=== PATIENT | female | born 1990 ===

== ENCOUNTER 2018-02-03 20:38 | Emergency (ER) | payer SELFPAY ==
[2018-02-03 20:44] VITALS: RESP 19; TEMP 98.6; O2SAT 100
[2018-02-03] MEDS ORDERED: Sodium Chloride 0.9% 1,000 ML IV STA ×2 (20:58→21:13)
--- NOTE | 2018-02-03 21:15 | ED PDOC ---
HPI: Abdomen Time Seen by Provider: 02/03/18 20:55 Chief Complaint (Nursing): Abdominal Pain History Per: Patient Onset/Duration Of Symptoms: Days (1) Current Symptoms Are (Timing): Still Present Severity: Moderate Location Of Pain/Discomfort: Epigastric Quality Of Discomfort: Sharp Associated Symptoms: Nausea, Vomiting, Diarrhea. denies: Fever Exacerbating Factors: None Alleviating Factors: None Additional Complaint(s): Epigastric abd pain assoc with vomiting and diarrhea x 2 days. Denies fever or blood in stools. Anthony weak and dizzy earlier. Past Medical History Vital Signs: Last Vital Signs Temp 98.6 F 02/03/18 20:40 Pulse 106 H 02/03/18 20:40 Resp 19 02/03/18 20:40 BP 127/78 02/03/18 20:40 Pulse Ox 100 02/03/18 20:40 - Medical History PMH: No Chronic Diseases - Family History Family History: States: Unknown Family Hx - Home Medications Home Medications: Ambulatory Orders Medication Instructions Recorded Famotidine [Pepcid] 20 mg PO Q12 #20 tab 02/03/18 Ondansetron [Zofran] 4 mg PO Q8H #10 tab 02/03/18 - Allergies Allergies/Adverse Reactions: Allergies Allergy/AdvReac Type Severity Reaction Status Date / Time No Known Allergies Allergy Verified 02/03/18 20:42 Review of Systems ROS Statement: Except As Marked, All Systems Reviewed And Found Negative Gastrointestinal: Positive for: Vomiting, Abdominal Pain, Diarrhea Neurological: Positive for: Dizziness Physical Exam - Reviewed Nursing Documentation Reviewed: Yes Vital Signs Reviewed: Yes - Physical Exam Appears: Positive for: Non-toxic, No Acute Distress Head Exam: Positive for: ATRAUMATIC, NORMAL INSPECTION, NORMOCEPHALIC Skin: Positive for: Normal Color, Warm, DRY Eye Exam: Positive for: EOMI, Normal appearance, PERRL ENT: Positive for: Other (Mucous membranes dry) Neck: Positive for: Normal, Painless ROM Cardiovascular/Chest: Positive for: Regular Rate, Rhythm Respiratory: Positive for: CNT, Normal Breath Sounds Gastrointestinal/Abdominal: Positive for: Soft, Tenderness (Epigastric) Back: Positive for: Normal Inspection Extremity: Positive for: Normal ROM Neurologic/Psych: Positive for: Alert, Oriented - Laboratory Results Result Diagrams: 02/03/18 21:41 02/03/18 21:41 - ECG O2 Sat by Pulse Oximetry: 100 - Progress Re-evaluation Time: 23:44 Condition: Improved (Tolerated PO no vomiting, no abd pain) Disposition - Clinical Impression Clinical Impression: Gastritis - Patient ED Disposition Is Patient to be Admitted: No Counseled Patient/Family Regarding: Studies Performed, Diagnosis, Need For Followup, Rx Given - Disposition Referrals: [facility] [Outside] Disposition: Routine/Home Disposition Time: 23:45 Condition: FAIR Prescriptions: Famotidine [Pepcid] 20 mg PO Q12 #20 tab Ondansetron [Zofran] 4 mg PO Q8H #10 tab Instructions: Gastritis Forms: [facility] (Kyrgyz)
[2018-02-03 21:52] LABS: BASO % 0.1 % (0.0-2.0); EOS % 0.3 % (0.0-4.0); HEMOGLOBIN 13.8 g/dL (12.0-16.0); LYMPH # 0.4 K/uL (1.0-4.3); MEAN CELL VOLUME 84.8 fl (81.0-99.0); MEAN CORPUSCULAR HEMOGLOBIN 27.4 pg (27.0-31.0); MEAN CORPUSCULAR HGB CONC 32.3 g/dL (33.0-37.0); MONO # 1.1 K/uL (0.0-0.8); MONO % 7.4 % (0.0-10.0); NEUT # 12.9 K/uL (1.8-7.0); NEUT % 89.2 % (50.0-75.0); PLATELET COUNT 282 K/uL (130-400); RBC 5.04 Mil/uL (3.80-5.20); RED CELL DISTRIBUTION WIDTH 14.2 % (11.5-14.5); WHITE BLOOD COUNT 14.5 K/uL (4.8-10.8)
[2018-02-03 22:02] LABS: ALB/GLOB RATIO 1.1 (1.0-2.1); ALBUMIN 4.6 g/dL (3.5-5.0); ALT/SGPT 25 U/L (9-52); AST/SGOT 24 U/L (14-36); BLOOD UREA NITROGEN 15 mg/dl (7-17); CALCIUM 9.2 mg/dL (8.4-10.2); GFR NON-AFRICAN AMERICAN > 60
[2018-02-03 22:03] LABS: LIPASE 50 U/L (23-300)
[2018-02-03 22:41] LABS: LYMPHOCYTE 7 % (20-50); MONOCYTE 5 % (0-10); MYELOCYTE 1 % (0-0); NEUTROPHIL 87 % (42-75); PLATELET ESTIMATE NORMAL (NORMAL); TOTAL CELLS COUNTED 100
[2018-02-04 00:08] VITALS: BP 105/60; PULSE 70
== END 2018-02-04 00:07 | disposition home or self-care (01) ==
LOC: H.ER 20:38
DX: K29.70 Gastritis, unspecified, without bleeding (principal)
CPT/HCPCS: 80053; 81025; 83690; 85025; 96361; 96374; 96375; 99284; J2405; J7030

== ENCOUNTER 2018-07-07 10:47 | Emergency (ER) | payer OTHER ==
[2018-07-07 10:48] VITALS: BMI 38.2
[2018-07-07 10:49] VITALS: RESP 18; O2SAT 99
[2018-07-07] MEDS ORDERED: Sodium Chloride 0.9% 1,000 ML IV STA (10:53)
--- NOTE | 2018-07-07 11:07 | ED PDOC ---
HPI: General Adult Time Seen by Provider: 07/07/18 10:52 Chief Complaint (Nursing): Abdominal Pain Chief Complaint (Provider): NAUSEA/VOMITING/ABD PAIN History Per: Patient (28 Y/O FEMALE APPROX 8 WEEKS GESTATION HERE WITH COMPLAINT OF NAUSEA ASSOCIATED WITH INTRACTABLE VOMITING X 2 DAYS NOW ASSOCIATED WITH LOWER ABD PAIN. DENIES ANY VAGINAL BLEEDING. STATES SHE WAS AT WORK TODAY AND FELT UNWELL. EMS CALLED TO TRANSPORT PATIENT TO ED.) Past Medical History Reviewed: Historical Data, Nursing Documentation, Vital Signs Vital Signs: Last Vital Signs Temp 98.7 F 07/07/18 10:48 Pulse 94 H 07/07/18 10:48 Resp 18 07/07/18 10:48 BP 128/70 07/07/18 10:48 Pulse Ox 99 07/07/18 10:48 - Family History Family History: States: Unknown Family Hx - Home Medications Home Medications: Ambulatory Orders Medication Instructions Recorded Famotidine [Pepcid] 20 mg PO Q12 #20 tab 02/03/18 Ondansetron [Zofran] 4 mg PO Q8H #10 tab 02/03/18 Doxylamine/Pyridoxine HCl (B6) 2 tab PO DAILY PRN #24 tablet. 07/07/18 [Alicja Mejias 10-10 mg Tablet] Ondansetron ODT [Zofran ODT] 4 mg PO Q8 PRN #10 odt 07/07/18 - Allergies Allergies/Adverse Reactions: Allergies Allergy/AdvReac Type Severity Reaction Status Date / Time No Known Allergies Allergy Verified 02/03/18 20:42 Review of Systems ROS Statement: Except As Marked, All Systems Reviewed And Found Negative Physical Exam - Reviewed Nursing Documentation Reviewed: Yes Vital Signs Reviewed: Yes - Physical Exam Appears: Positive for: Well, Non-toxic, No Acute Distress Head Exam: Positive for: ATRAUMATIC, NORMAL INSPECTION, NORMOCEPHALIC Skin: Positive for: Normal Color, Warm, DRY Eye Exam: Positive for: EOMI, Normal appearance, PERRL ENT: Positive for: Normal ENT Inspection Neck: Positive for: Normal, Painless ROM Cardiovascular/Chest: Positive for: Regular Rate, Rhythm Respiratory: Positive for: CNT, Normal Breath Sounds Gastrointestinal/Abdominal: Positive for: Normal Exam, Soft Pelvic Exam: Positive for: Other (no blood noted. Mild tenderness on palpation of uterus.) Back: Positive for: Normal Inspection Extremity: Positive for: Normal ROM Neurological/Psych: Positive for: Awake, Alert, Normal Tone - Laboratory Results Result Diagrams: 07/07/18 11:35 07/07/18 11:35 Urine POC: Positive Urine dip results: Negative for: Leukocyte Esterase, Blood, Nitrate, Ketones, Glucose, Bilirubin, Protein - ECG O2 Sat by Pulse Oximetry: 99 - Progress ED Course And Treament: IMPRESSION: A single viable intrauterine gestation is identified with sonographic age of 6 weeks 1 day concordant with LMP derived dates. Cardiac activity registered is 123 beats per minute. Small subchorionic hemorrhage suggested inferiorly. g/c sent ns 1 liter wide open zofran 4 mg iv x dose Disposition - Clinical Impression Clinical Impression: Subchorionic hemorrhage, Threatened miscarriage, Vomiting affecting - Patient ED Disposition Is Patient to be Admitted: No - Disposition Disposition: Routine/Home Disposition Time: 14:32 Condition: FAIR Prescriptions: Doxylamine/Pyridoxine HCl (B6) [Alicja Mejias 10-10 mg Tablet] 2 tab PO DAILY PRN #24 tablet. PRN Reason: Nausea/Vomiting Ondansetron ODT [Zofran ODT] 4 mg PO Q8 PRN #10 odt PRN Reason: Nausea/Vomiting Instructions: Threatened Miscarriage (DC), Nausea and Vomiting of (DC)
[2018-07-07 12:01] LABS: BASO # 0.1 K/uL (0.0-0.2); BASO % 0.7 % (0.0-2.0); EOS # 0.1 K/uL (0.0-0.7); EOS % 0.5 % (0.0-4.0); HEMOGLOBIN 13.1 g/dL (12.0-16.0); LYMPH % 17.5 % (20.0-40.0); MEAN CELL VOLUME 83.4 fl (81.0-99.0); MEAN CORPUSCULAR HEMOGLOBIN 27.7 pg (27.0-31.0); MEAN CORPUSCULAR HGB CONC 33.3 g/dL (33.0-37.0); MEAN PLATELET VOLUME 8.8 fl (7.2-11.7); MONO # 1.1 K/uL (0.0-0.8); MONO % 9.4 % (0.0-10.0); NEUT # 8.2 K/uL (1.8-7.0); NEUT % 71.9 % (50.0-75.0); NRBC % 0.1 % (0.0-0.0); RBC 4.72 Mil/uL (3.80-5.20); RED CELL DISTRIBUTION WIDTH 13.7 % (11.5-14.5); WHITE BLOOD COUNT 11.4 K/uL (4.8-10.8)
[2018-07-07 12:16] LABS: ALB/GLOB RATIO 1.2 (1.0-2.1); ALBUMIN 4.7 g/dL (3.5-5.0); BLOOD UREA NITROGEN 7 mg/dl (7-17); CALCIUM 9.3 mg/dL (8.4-10.2); GFR NON-AFRICAN AMERICAN > 60
[2018-07-07 12:20] LABS: ALT/SGPT 59 U/L (9-52); AST/SGOT 45 U/L (14-36)
[2018-07-07 12:26] LABS: B-TYPE NATRIURETIC PEPTIDE 21.5 pg/ml (0-450)
--- NOTE | 2018-07-07 13:01 | US ---
Date of service: 07/07/2018 PROCEDURE: OB Pelvic Ultrasound HISTORY: abdominal pain 8 weeks pregnanc LMP: 05/26/2018 suggesting 6 week 0 day gestation. COMPARISON: None available. FINDINGS: UTERUS: Gestational sac: Single intrauterine gestation. Heart rate: 123 bpm. age (Ultrasound estimated): 6 weeks 1 day by a mean crown-rump length of 0.5 cm. Mean gestational sac 2.0 cm. Yolk sac measures 0.2 cm. Xochitl-gestational hemorrhage: Limited subchorionic hemorrhage is identified at the inferior margins of the decidual reaction. Date of delivery (Ultrasound estimated) : 02/27/2019 Uterus measures 8.3 x 4.9 x 6.2 cm.. No suspicious myometrial pathology appreciable. CERVIX: Measures 3.3 cm. Long and closed. No cervical abnormality seen. RIGHT OVARY: Measures 2.3 x 1.3 x 1.7 cm. No mass lesion. Normal flow. LEFT OVARY: Measures 2.7 x 2.0 x 2.8 cm. No solid mass. Normal flow. FREE FLUID: None. OTHER FINDINGS: None. IMPRESSION: A single viable intrauterine gestation is identified with sonographic age of 6 weeks 1 day concordant with LMP derived dates. Cardiac activity registered is 123 beats per minute. Small subchorionic hemorrhage suggested inferiorly.
[2018-07-07 16:21] VITALS: BP 122/73; PULSE 92; TEMP 98.2
== END 2018-07-07 14:54 | disposition home or self-care (01) ==
LOC: H.ER 10:47
DX: O21.9 Vomiting of pregnancy, unspecified (principal); O20.0 Threatened abortion; O26.891 Other specified pregnancy related conditions, first trimester; O20.8 Other hemorrhage in early pregnancy; Z3A.08 8 weeks gestation of pregnancy
CPT/HCPCS: 76817; 80053; 81025; 83880; 84702; 85025; 86850; 86900; 87491; 87591; 96361; 96374; 99284; J2405; J7030